=== PATIENT | female | born 1935 | race Caucasian/White ===

== ENCOUNTER 2021-10-08 09:20 | Inpatient (IN) | payer MEDICARE, MEDICAID ==
[~2021-10-08] VITALS: Ht 162.6 cm; Wt 78.7 kg
[2021-10-08] MEDS ORDERED: acetaminophen 650mg rectal suppository RC STA (09:28)
[2021-10-08] MEDS ORDERED: levoFLOXACIN-Levaquin 750MG/D5 150 ML IV ONE (09:30)
[2021-10-08] MEDS ORDERED: normal saline 1000ML IV soln IV ONE (09:30)
--- NOTE | 2021-10-08 09:40 | NUR ---
PAGED PICC LINE NURSE FOR IV ACCESS , PT NEED ULTRASOUND GUIDED ,NO IV ON RGT ARM DUE TO SKIN GRAFT .
[2021-10-08] MEDS ORDERED: DEXTROSE IV ONE (09:42)
[2021-10-08] MEDS ORDERED: [UNRECOGNIZED DRUG - OTHER] IV ONE (09:42)
[2021-10-08] MEDS ORDERED: LEVOFLOXACIN IV ONE (09:42)
--- NOTE | 2021-10-08 09:45 | NUR ---
GOT IV ACCESS ON PT NO NEED FOR PICC LINE NURSE.
[2021-10-08 10:12] LABS: BASOPHILS # (AUTO) 0.1 X10'3 (0-0.2); BASOPHILS % (AUTO) 0.9 % (0-1); EOSINOPHILS % (AUTO) 0.1 % (0-6); HEMATOCRIT 29.5 % (35.0-45.0); HEMOGLOBIN 9.6 g/dl (12.0-16.0); LYMPHOCYTES # (AUTO) 0.8 X10'3 (1.1-4.8); LYMPHOCYTES % (AUTO) 8.5 % (21-51); MEAN CORPUSCULAR HEMOGLOBIN 27.5 PG (27.0-31.0); MEAN CORPUSCULAR HGB CONC 32.5 g/dL (33.0-36.5); MEAN CORPUSCULAR VOLUME 84.8 FL (78-98); MEAN PLATELET VOLUME 7.7 FL (7.4-10.4); MONOCYTES # (AUTO) 0.5 X10'3 (0-0.9); MONOCYTES % (AUTO) 5.7 % (2-12); NEUTROPHILS % (AUTO) 84.8 % (42-75); PLATELET COUNT 477 X10'3 (140-440); RED BLOOD COUNT 3.47 X10'6 (4.20-5.60); WHITE BLOOD COUNT 9.4 X10'3 (4.5-11.0)
[2021-10-08 10:27] LABS: ALANINE AMINOTRANSFERASE 39 U/L (12-78); ALBUMIN 2.9 G/DL (3.4-5.0); ALBUMIN/GLOBULIN RATIO 0.8 (1.1-1.5); ALKALINE PHOSPHATASE 107 IU/L (46-116); ANION GAP 6 (8-16); ASPARTATE AMINO TRANSFERASE 28 U/L (10-37); BILIRUBIN,TOTAL 0.5 MG/DL (0.1-1.0); BLOOD UREA NITROGEN 17 MG/DL (7-18); BUN/CREATININE RATIO 15.7 (6.6-38.0); CALCIUM 8.9 MG/DL (8.5-10.1); CHLORIDE 96 MMOL/L (99-107); CREATININE 1.08 MG/DL (0.40-0.90); GLUCOSE 235 MG/DL (70-104); POTASSIUM 5.4 MMOL/L (3.5-5.1); SODIUM 132 MMOL/L (135-145); TOTAL CARBON DIOXIDE 29.8 MMOL/L (24-32); TOTAL PROTEIN 6.7 G/DL (6.4-8.2); eGFR 48 ML/MIN
[2021-10-08] MEDS ORDERED: morphine 4 MG/ML inj SYRINge IV PRN (10:40)
[2021-10-08] MEDS ORDERED: ondansetron/PF 4mg/2ml inj IV ONE (10:40)
[2021-10-08 10:41] LABS: ANISOCYTOSIS 1+; LARGE PLATELETS FEW; PLATELET ESTIMATE INCREASED; TOTAL CELLS COUNTED 100
[2021-10-08] MEDS ORDERED: iohexol 350MG/ML 100ml bottle IV ONE (10:50)
[2021-10-08] MEDS ORDERED: mag hydrox/Alum hydrox/simeth 30ml oral suspension CORPAK PRN (12:15)
[2021-10-08] MEDS ORDERED: magnesium Cl slow-release 64mg tablet PO PRN (12:15)
[2021-10-08] MEDS ORDERED: morphine 2 MG/ML inj. syringe IV PRN (12:15)
[2021-10-08] MEDS ORDERED: magnesium hydroxide 30ml (MOM) UD suspension CORPAK PRN (12:15)
[2021-10-08] MEDS ORDERED: magnesium 2GM in 50ml NS 50 ML IV PRN (12:15)
[2021-10-08] MEDS ORDERED: ondansetron/PF 4mg/2ml inj IV PRN (12:15)
[2021-10-08] MEDS ORDERED: magnesium 4gm in 100ml NS 100 ML IV PRN (12:15)
[2021-10-08] MEDS ORDERED: potassium CL 10mEq/100ml bag 100 ML IV PRN (12:15)
[2021-10-08] MEDS ORDERED: acetaminophen 325mg tablet CORPAK PRN (12:15)
[2021-10-08] MEDS ORDERED: bisacodyl 10mg suppository rectal RC PRN (12:15)
[2021-10-08] MEDS ORDERED: potassium Cl 20 mEq SR tablet PO PRN ×2 (12:15)
[2021-10-08] MEDS ORDERED: ASPI-1144 PO (12:55)
[2021-10-08] MEDS ORDERED: INSU100V13 PO (12:55)
[2021-10-08] MEDS ORDERED: ACET-75 PO (12:55)
[2021-10-08] MEDS ORDERED: ESTR0.5T28 PO (12:55)
[2021-10-08] MEDS ORDERED: LANTUS SQ (12:55)
[2021-10-08] MEDS ORDERED: LOVA40TA2 PO (12:55)
[2021-10-08] MEDS ORDERED: CETI5TAB27 PO (12:55)
[2021-10-08] MEDS ORDERED: PROP10DR5 OP (12:55)
[2021-10-08] MEDS ORDERED: VALA500T41 PO (12:55)
[2021-10-08] MEDS ORDERED: AZEL6DRO5 EACHEYE (12:55)
[2021-10-08] MEDS ORDERED: LEVO125T PO (12:55)
[2021-10-08] MEDS ORDERED: ALPR0.255 PO (12:55)
[2021-10-08] MEDS ORDERED: METH-797 PO (12:55)
[2021-10-08] MEDS ORDERED: ONDA-103 PO (12:55)
[2021-10-08] MEDS ORDERED: AMLO5TAB16 PO (12:55)
[2021-10-08] MEDS ORDERED: DULO30CA52 PO (12:55)
[2021-10-08] MEDS ORDERED: OXYCODONE PO (13:00)
[2021-10-08 13:01] LABS: CLARITY,URINE SLIGHTLY CLOUDY (Clear); COLOR,URINE YELLOW (Yellow); GLUCOSE, URINE NEGATIVE (Neg); KETONES,URINE NEGATIVE (Neg); LEUKOCYTE ESTERASE ,URINE NEGATIVE (Neg); NITRITES, URINE NEGATIVE (Neg); OCCULT BLOOD,URINE NEGATIVE (Neg); PROTEIN,URINE TRACE mg/dl (Neg); UROBILINOGEN,URINE 0.2 E.U/dL (0.2-1.0)
[2021-10-08 13:05] LABS: UA COLLECTION TYPE NON-SPECIFIED
[2021-10-08 13:06] LABS: BACTERIA,URINE NONE SEEN /HPF (Neg); MUCUS STRANDS NONE SEEN /LPF (Neg); RBC,URINE NONE SEEN /HPF (0-2); SQUAMOUS EPITHELIAL CELL,UR FEW /LPF (FEW); WBC,URINE NONE SEEN /HPF (0-4)
[2021-10-08 13:36] LABS: MAGNESIUM 1.7 MG/DL (1.5-2.4); POTASSIUM 4.9 MMOL/L (3.5-5.1)
[2021-10-08] MEDS: normal saline 1000ml 1,000 ML IV SCH (13:39)
[2021-10-08] MEDS: morphine 2 MG/ML inj. syringe IV PRN ×2 (13:39→20:17)
--- NOTE | 2021-10-08 17:58 | NUR ---
RECEIVED REPORT, ASSUMED CARE. PT ARRIVED WITH ng TUBE IN SECURED WITH A BRIDAL, DRIED BLOOD PRIMARILY AROUND L NARE. MOUTH HAS SCABS LOOKING AREA ON L SIDE WELL VERRY DRY THICKENED TONGUE, BANDAGE TO R ARM AND R THIGH, FRONT OF NECK. F/C IN PLACE, VS STABLE, IV FLUIDS CONNECTED AND RUNNING ORDERED. TELE SET UP. NO ADMIT PROCESS COMPLETED, WILL REPORT TO NOC NURSE NEED TO COMPLETE ADMISSION.
[2021-10-08 18:01] VITALS: BP 134/78
--- NOTE | 2021-10-08 18:34 | NUR ---
Problems reprioritized. Patient report given, questions answered & plan of care reviewed with Vicki THACKER.
--- NOTE | 2021-10-08 18:40 | NUR ---
Patient in room ORTHO 4008. I have received report from Martinez THACKER and had the opportunity to ask questions and assume patient care.
[2021-10-08] MEDS: K and/or MAG REPLACEMENT MC SCH (19:06)
[2021-10-08] MEDS: heparin, porcine 5000 units/ml vial SQ SCH (20:17)
[2021-10-08] MEDS ORDERED: temazepam 15mg capsule CORPAK PRN (21:00)
[2021-10-08 22:00] VITALS: BP 143/30
--- NOTE | 2021-10-08 23:10 | NUR ---
DRESSING CHANGES- Spoke on the phone with pts grandson Margarito, he has been caring for pt sense discharge from [facility]. Pt had mouth surgery recently with skin grafts. Per Margarito the dressing on her neck from her trach "is not supposed to be changed until the tape starts to peel up" the dressing on her R forearm from a skin graft "is supposed to changed once a day" the skin graft on her R leg "is supposed to keep in place unless soiled." Margarito also stated that they have a scheduled post op appointment on 10/14 where they would get further instructions on her care.
[2021-10-08 23:27] LABS: HEMOGLOBIN A1C 6.4 % (4.5-6.2)
[2021-10-09] MEDS: normal saline 1000ml 1,000 ML IV SCH ×2 (00:45→18:39)
[2021-10-09] MEDS: morphine 2 MG/ML inj. syringe IV PRN ×4 (01:14→19:48)
--- NOTE | 2021-10-09 01:49 | NUR ---
PAGER ID: [phone] MESSAGE: Pt in [phone] Christel Adams. Admitted yesterday for PN and Resp failure. NPO with core pack placement post oral surgery at [facility]. History of DM. Pt blood sugar was 171 at 2100. and 173 now. No diabetic protocol ordered. Addendum: 10/09/21 at 0152 by Vicki Carias RN gave orders for diabetic protocol
[2021-10-09] MEDS ORDERED: dextrose 50%-water 50ml dispensing syringe IV PRN ×2 (01:55)
[2021-10-09] MEDS ORDERED: MESSAGE TO PHARMACY PO ONE (01:55)
[2021-10-09] MEDS ORDERED: glucagon, human recombinant 1mg kit SUBCUT PRN (01:55)
[2021-10-09] MEDS ORDERED: insulin Lispro (HumaLOG) vial - multi-dose SQ SCH (01:55)
[2021-10-09] MEDS ORDERED: DEXTROSE 15 GM of carb/4 tabs (each vial/BOTTLE has 4 tablets) PO PRN ×2 (01:55)
[2021-10-09 02:00] VITALS: BP 142/37
[2021-10-09 06:00] VITALS: BP 142/38
--- NOTE | 2021-10-09 06:45 | NUR ---
Problems reprioritized. Patient report given, questions answered & plan of care reviewed with Alessia THACKER.
[2021-10-09] MEDS: K and/or MAG REPLACEMENT MC SCH (07:21)
[2021-10-09] MEDS: heparin, porcine 5000 units/ml vial SQ SCH ×2 (07:31→21:59)
[2021-10-09] MEDS: levoFLOXACIN-Levaquin 500mg/D5 100 ML IV SCH (07:31)
[2021-10-09 08:01] LABS: BASOPHILS % (AUTO) 0.4 % (0-1); EOSINOPHILS % (AUTO) 0.3 % (0-6); HEMATOCRIT 27.3 % (35.0-45.0); LYMPHOCYTES % (AUTO) 15.9 % (21-51); MEAN CORPUSCULAR HEMOGLOBIN 28.5 PG (27.0-31.0); MEAN CORPUSCULAR HGB CONC 33.1 g/dL (33.0-36.5); MEAN CORPUSCULAR VOLUME 86.2 FL (78-98); MEAN PLATELET VOLUME 8.1 FL (7.4-10.4); MONOCYTES # (AUTO) 0.6 X10'3 (0-0.9); MONOCYTES % (AUTO) 9.6 % (2-12); NEUTROPHILS # (AUTO) 4.4 X10'3 (1.8-7.7); NEUTROPHILS % (AUTO) 73.8 % (42-75); PLATELET COUNT 373 X10'3 (140-440); RED BLOOD COUNT 3.16 X10'6 (4.20-5.60); RED CELL DISTRIBUTION WIDTH 16.7 % (11.5-14.5)
[2021-10-09 08:53] LABS: ALANINE AMINOTRANSFERASE 34 U/L (12-78); ALBUMIN 2.5 G/DL (3.4-5.0); ALBUMIN/GLOBULIN RATIO 0.7 (1.1-1.5); ALKALINE PHOSPHATASE 77 IU/L (46-116); ANION GAP 9 (8-16); ASPARTATE AMINO TRANSFERASE 30 U/L (10-37); BILIRUBIN,TOTAL 0.4 MG/DL (0.1-1.0); BLOOD UREA NITROGEN 11 MG/DL (7-18); BUN/CREATININE RATIO 12.4 (6.6-38.0); CALCIUM 8.6 MG/DL (8.5-10.1); CHLORIDE 100 MMOL/L (99-107); CREATININE 0.89 MG/DL (0.40-0.90); GLUCOSE 187 MG/DL (70-104); MAGNESIUM 2.1 MG/DL (1.5-2.4); POTASSIUM 4.7 MMOL/L (3.5-5.1); SODIUM 135 MMOL/L (135-145); TOTAL CARBON DIOXIDE 25.8 MMOL/L (24-32); eGFR 60 ML/MIN
--- NOTE | 2021-10-09 09:10 | NUR ---
DM/TF consults: Pt with T2DM, well controlled with A1c 6.4%, DM education not warranted at this time. Per H&P pt with mouth cancer, s/p recent excision of the soft palate cancer with skin grafting from right forearm to mouth as well as skin grafting from right thigh to right forearm. Pt with a Corpak in place per EMR, see TF recommendations below. IBW was used to calculate estimated nutrient needs as current documented wt isn't scaled. Will adjust recommendations as appropriately once a scaled weight is obtained. Pt s/p BSS with ST recs NPO d/t requiring multiple swallow attempts and coughing after swallowing. No documented BM, PRN bowel care available. Will continue to follow closely and make recommendations as appropriate. Recommendations: 1) Continue NPO status per ST recs; diet advancement to regular if able to tolerate PO intake per ST 2) Continuous TF via Corpak using Fridayity 1.2 with 56 mL/hr goal rate. To provide 1344 mL total volume/day, 1613 kcal, 75 g protein, and 1085 mL water 3) Adjust TF recs as appropriate pending scaled weight 4) No water flushes at this time in view of hyponatremia; monitor serum Na 5) Consider PEG for retirement nutrition if unable to advance PO diet 6) Prealbumin q Tuesday/ 7) Daily scaled weights 8) Routine bowel care Addendum: 10/09/21 at [address] Amended: Links added.
[2021-10-09 10:00] VITALS: BP 132/39
[2021-10-09] MEDS ORDERED: DEXTROSE 15 GM of carb/4 tabs (each vial/BOTTLE has 4 tablets) CORPAK PRN ×2 (11:45→11:46)
[2021-10-09] MEDS ORDERED: potassium Cl 20 mEq SR tablet CORPAK PRN ×2 (11:48)
[2021-10-09] MEDS ORDERED: acetaminophen 325mg/10.15ml oral unit dose solution CORPAK PRN (11:50)
[2021-10-09 14:00] VITALS: BP 133/40
[2021-10-09] MEDS: insulin regular, human U-100 3ml vial - multi-dose SQ SCH ×2 (15:10→21:58)
[2021-10-09] MEDS ORDERED: PROPYLENE GLYCOL OP PRN (17:55)
[2021-10-09] MEDS ORDERED: PEG OP PRN (17:55)
[2021-10-09 18:00] VITALS: BP 154/43
--- NOTE | 2021-10-09 19:05 | NUR ---
Patient in room ORTHO 4008. I have received report from MYNOR THACKER and had the opportunity to ask questions and assume patient care.
[2021-10-09] MEDS: TYPE IN GENERIC & BRAND NAME OF PATIENT MED STRENGTH & FORM EACHEYE PRN (19:54)
[2021-10-09] MEDS: cetirizine 10mg tablet CORPAK SCH (20:00)
[2021-10-09] MEDS: cyclobenzaprine 10mg tablet CORPAK SCH (21:59)
[2021-10-09 22:00] VITALS: BP 134/38
[2021-10-09] MEDS: insulin glargine (Lantus) pen - multi-dose SQ SCH (22:07)
--- NOTE | 2021-10-10 00:45 | NUR ---
WASN'T ABLE TO ADMINISTER HS MEDS VIA CORPAK D/T HER SETUP IS NOT COMPATABLE WITH ANY OF OUR MATERIALS. WILL CONTACT GRANDSON IN THE MORNING AND ASK HIM TO BRING IN WHAT HE USES TO ADMINISTER HER MEDICATIONS TO HER.
[2021-10-10] MEDS: morphine 2 MG/ML inj. syringe IV PRN ×4 (01:10→20:43)
[2021-10-10 02:00] VITALS: BP 105/34
[2021-10-10] MEDS: insulin regular, human U-100 3ml vial - multi-dose SQ SCH ×4 (05:09→21:48)
[2021-10-10 06:00] VITALS: BP 129/32
--- NOTE | 2021-10-10 06:19 | NUR ---
Problems reprioritized. Patient report given, questions answered & plan of care reviewed with MYNOR THACKER.
[2021-10-10] MEDS: normal saline 1000ml 1,000 ML IV SCH ×2 (06:30→17:59)
[2021-10-10 06:58] LABS: BASOPHILS % (AUTO) 0.2 % (0-1); EOSINOPHILS % (AUTO) 0.4 % (0-6); HEMATOCRIT 24.4 % (35.0-45.0); HEMOGLOBIN 8.2 g/dl (12.0-16.0); LYMPHOCYTES # (AUTO) 0.9 X10'3 (1.1-4.8); LYMPHOCYTES % (AUTO) 19.3 % (21-51); MEAN CORPUSCULAR HGB CONC 33.5 g/dL (33.0-36.5); MEAN CORPUSCULAR VOLUME 86.5 FL (78-98); MEAN PLATELET VOLUME 8.1 FL (7.4-10.4); MONOCYTES # (AUTO) 0.6 X10'3 (0-0.9); MONOCYTES % (AUTO) 11.7 % (2-12); NEUTROPHILS # (AUTO) 3.3 X10'3 (1.8-7.7); NEUTROPHILS % (AUTO) 68.4 % (42-75); PLATELET COUNT 354 X10'3 (140-440); RED BLOOD COUNT 2.82 X10'6 (4.20-5.60); RED CELL DISTRIBUTION WIDTH 16.6 % (11.5-14.5); WHITE BLOOD COUNT 4.8 X10'3 (4.5-11.0)
[2021-10-10 07:29] LABS: ALANINE AMINOTRANSFERASE 38 U/L (12-78); ALBUMIN 2.2 G/DL (3.4-5.0); ALBUMIN/GLOBULIN RATIO 0.6 (1.1-1.5); ALKALINE PHOSPHATASE 95 IU/L (46-116); ANION GAP 7 (8-16); ASPARTATE AMINO TRANSFERASE 39 U/L (10-37); BILIRUBIN,TOTAL 0.3 MG/DL (0.1-1.0); BLOOD UREA NITROGEN 14 MG/DL (7-18); BUN/CREATININE RATIO 16.3 (6.6-38.0); CALCIUM 8.1 MG/DL (8.5-10.1); CHLORIDE 102 MMOL/L (99-107); CREATININE 0.86 MG/DL (0.40-0.90); GLUCOSE 289 MG/DL (70-104); MAGNESIUM 1.8 MG/DL (1.5-2.4); POTASSIUM 4.5 MMOL/L (3.5-5.1); SODIUM 135 MMOL/L (135-145); TOTAL CARBON DIOXIDE 26.3 MMOL/L (24-32); TOTAL PROTEIN 5.6 G/DL (6.4-8.2); eGFR 63 ML/MIN
[2021-10-10] MEDS: levoTHYROXINE 125mcg tablet CORPAK SCH (08:00)
[2021-10-10] MEDS: amLODIPine 5mg tablet CORPAK SCH (08:00)
[2021-10-10] MEDS: K and/or MAG REPLACEMENT MC SCH ×3 (08:00→20:00)
[2021-10-10] MEDS: cetirizine 10mg tablet CORPAK SCH ×2 (08:00→21:25)
[2021-10-10] MEDS: ALPRAZolam 0.25mg tablet CORPAK SCH ×3 (08:00→15:22)
[2021-10-10] MEDS: atorvastatin 10mg tablet CORPAK SCH (08:00)
[2021-10-10] MEDS: levoFLOXACIN-Levaquin 500mg/D5 100 ML IV SCH (09:27)
[2021-10-10] MEDS: heparin, porcine 5000 units/ml vial SQ SCH ×2 (09:28→21:26)
--- NOTE | 2021-10-10 09:43 | NUR ---
ALBARO Pimentel who said he will bring in the syringe that is compatible with pt's corpak. He is at work and cant get here until around 2pm today.
--- NOTE | 2021-10-10 09:51 | NUR ---
PAGER ID: [phone] MESSAGE: Celina [phone] re: Christel Adams in [phone]. Pt's corpak is not compatible with any of our syringes so we are unable to admin meds through corpak. Olena will bring syring from home at 1400 today.
[2021-10-10 10:00] VITALS: BP 140/58
[2021-10-10] MEDS: cyclobenzaprine 10mg tablet CORPAK SCH ×4 (15:22→21:25)
[2021-10-10] MEDS: aspirin 81mg tab.chew CORPAK SCH (15:22)
[2021-10-10] MEDS: TYPE IN GENERIC & BRAND NAME OF PATIENT MED STRENGTH & FORM EACHEYE PRN (15:26)
[2021-10-10] MEDS: duloxetine 30mg CAPSULE.DR PO SCH (15:54)
[2021-10-10 18:00] VITALS: BP 108/32
--- NOTE | 2021-10-10 18:41 | NUR ---
Problems reprioritized. Patient report given, questions answered & plan of care reviewed with Helen THACKER.
[2021-10-10] MEDS: insulin glargine (Lantus) pen - multi-dose SQ SCH (21:40)
[2021-10-10 22:00] VITALS: BP 142/41
[2021-10-11] MEDS: ALPRAZolam 0.25mg tablet CORPAK SCH ×3 (01:52→16:43)
[2021-10-11] MEDS: normal saline 1000ml 1,000 ML IV SCH ×2 (02:45→15:15)
[2021-10-11] MEDS: morphine 2 MG/ML inj. syringe IV PRN ×4 (03:36→23:39)
--- NOTE | 2021-10-11 04:42 | NUR ---
PTS ACU CHECK IS 84, DOWN FROM [address] PAUL AND WAS TOLD TO HOLD INSULIN. NO NUTRITIONAL COVERAGE GIVEN AND WILL EVALUATE WHETHER PATIENT NEEDS TO DECREASE HER LEVEL ON THE PROTOCOL WITH NEXT CHECK.
[2021-10-11 06:00] VITALS: BP 122/45
--- NOTE | 2021-10-11 06:30 | NUR ---
Patient in room ORTHO 4008. I have received report from KEDAR Cervantes and had the opportunity to ask questions and assume patient care.
[2021-10-11 06:57] LABS: ALANINE AMINOTRANSFERASE 36 U/L (12-78); ALBUMIN 2.3 G/DL (3.4-5.0); ALBUMIN/GLOBULIN RATIO 0.7 (1.1-1.5); ALKALINE PHOSPHATASE 86 IU/L (46-116); ANION GAP 6 (8-16); ASPARTATE AMINO TRANSFERASE 42 U/L (10-37); BILIRUBIN,TOTAL 0.2 MG/DL (0.1-1.0); BLOOD UREA NITROGEN 12 MG/DL (7-18); BUN/CREATININE RATIO 16.4 (6.6-38.0); CALCIUM 8.5 MG/DL (8.5-10.1); CHLORIDE 105 MMOL/L (99-107); CREATININE 0.73 MG/DL (0.40-0.90); FERRITIN 203 NG/ML (8-252); GLUCOSE 101 MG/DL (70-104); POTASSIUM 4.2 MMOL/L (3.5-5.1); SODIUM 138 MMOL/L (135-145); TOTAL CARBON DIOXIDE 27.2 MMOL/L (24-32); TOTAL PROTEIN 5.7 G/DL (6.4-8.2); eGFR 76 ML/MIN
[2021-10-11 07:12] LABS: BASOPHILS % (AUTO) 0.5 % (0-1); EOSINOPHILS % (AUTO) 0.6 % (0-6); HEMATOCRIT 26.9 % (35.0-45.0); HEMOGLOBIN 8.7 g/dl (12.0-16.0); LYMPHOCYTES # (AUTO) 1.5 X10'3 (1.1-4.8); LYMPHOCYTES % (AUTO) 31.9 % (21-51); MEAN CORPUSCULAR HEMOGLOBIN 27.9 PG (27.0-31.0); MEAN CORPUSCULAR HGB CONC 32.2 g/dL (33.0-36.5); MEAN CORPUSCULAR VOLUME 86.5 FL (78-98); MEAN PLATELET VOLUME 8.2 FL (7.4-10.4); MONOCYTES # (AUTO) 0.6 X10'3 (0-0.9); MONOCYTES % (AUTO) 13.5 % (2-12); NEUTROPHILS # (AUTO) 2.5 X10'3 (1.8-7.7); NEUTROPHILS % (AUTO) 53.5 % (42-75); PLATELET COUNT 370 X10'3 (140-440); RED BLOOD COUNT 3.11 X10'6 (4.20-5.60); RED CELL DISTRIBUTION WIDTH 17.3 % (11.5-14.5); WHITE BLOOD COUNT 4.6 X10'3 (4.5-11.0)
[2021-10-11 07:16] LABS: % IRON SATURATION 13 % (11-46); IRON 34 UG/DL (49-151); TOTAL IRON BINDING CAPACITY 265 UG/DL (259-388)
--- NOTE | 2021-10-11 07:26 | NUR ---
Problems reprioritized. Patient report given, questions answered & plan of care reviewed with DARLINE THACKER.
[2021-10-11] MEDS: K and/or MAG REPLACEMENT MC SCH ×2 (08:00→20:00)
[2021-10-11] MEDS: levoFLOXACIN-Levaquin 250mg/D5 50 ML IV SCH (08:50)
[2021-10-11] MEDS: aspirin 81mg tab.chew CORPAK SCH (08:52)
[2021-10-11] MEDS: amLODIPine 5mg tablet CORPAK SCH (08:52)
[2021-10-11] MEDS: levoTHYROXINE 125mcg tablet CORPAK SCH (08:53)
[2021-10-11] MEDS: heparin, porcine 5000 units/ml vial SQ SCH ×2 (08:53→19:56)
[2021-10-11] MEDS: atorvastatin 10mg tablet CORPAK SCH (08:53)
[2021-10-11] MEDS: duloxetine 30mg CAPSULE.DR PO SCH (08:53)
[2021-10-11] MEDS: cyclobenzaprine 10mg tablet CORPAK SCH ×3 (08:53→20:08)
[2021-10-11] MEDS: cetirizine 10mg tablet CORPAK SCH ×2 (08:53→19:56)
[2021-10-11 10:00] VITALS: BP 129/58
--- NOTE | 2021-10-11 10:40 | NUR ---
0900 corpack pump was not running. Meds were crushed except Cymbalta which was processed as pharmacy advised. Tube appeared to flush but was found backed up Jevity tubing into the chamber. Removed feeing tubing but corpack would not flush. Multiple attempt to de-clog failed. Notified Dr Lyle who will contact IR for assist. Corpack is not to be used until cleared or replaced.
--- NOTE | 2021-10-11 10:56 | NUR ---
tube feeding not running d/t cloggmarquez connolly Addendum: 10/11/21 at 1056 by Cindy Bowers RN Amended: Links added.
--- NOTE | 2021-10-11 13:56 | NUR ---
MANAGER STONE came to aide in fixing clogged Corpack. Was able to release clamp near nose to clear it the re-clamped. Tube feeding resumed and medications flushed easily.
[2021-10-11 14:00] VITALS: BP 110/52
[2021-10-11] MEDS: insulin regular, human U-100 3ml vial - multi-dose SQ SCH ×2 (14:16→20:03)
[2021-10-11 18:00] VITALS: BP 101/41
--- NOTE | 2021-10-11 18:26 | NUR ---
Problems reprioritized. Patient report given, questions answered & plan of care reviewed with KEDAR Cervantes.
--- NOTE | 2021-10-11 18:51 | NUR ---
Patient in room ORTHO 4008. I have received report from DARLINE THACKER and had the opportunity to ask questions and assume patient care.
[2021-10-11] MEDS: insulin glargine (Lantus) pen - multi-dose SQ SCH (20:05)
[2021-10-11 22:00] VITALS: BP 114/39
[2021-10-12] VITALS (17 sets, daily range): BP systolic 110–166; BP diastolic 30–59
[2021-10-12] MEDS ORDERED: albuterol 2.5 MG/3 ML nebule NEB STA (01:21)
[2021-10-12 01:29] LABS: ABG BASE EXCESS -3.3 mmol/L (-2.0-2.0); ABG HCO3 21.6 mmol/L (22.0-26.0); ABG OXYGEN SATURATION 96.3 % (94-97); ABG PCO2 (T) 37.9 mmHg (32.0-45.0); ALLEN'S TEST POSITIVE; FCOHb 0.3 % (0.0-3.9); FLOW 4 L/min; FMetHb 0.2 % (0.0-1.5); FO2Hb 95.8 % (94-97); TOTAL HEMOGLOBIN 10.4 G/dl (12.0-16.0)
[2021-10-12] MEDS ORDERED: ipratropium/albuterol 3ml nebule NEB PRN (01:50)
[2021-10-12 01:59] LABS: BASOPHILS % (AUTO) 0.7 % (0-1); EOSINOPHILS # (AUTO) 0.1 X10'3 (0-0.9); EOSINOPHILS % (AUTO) 0.9 % (0-6); HEMATOCRIT 30.3 % (35.0-45.0); HEMOGLOBIN 9.9 g/dl (12.0-16.0); LYMPHOCYTES # (AUTO) 2.5 X10'3 (1.1-4.8); LYMPHOCYTES % (AUTO) 42.2 % (21-51); MEAN CORPUSCULAR HGB CONC 32.8 g/dL (33.0-36.5); MEAN CORPUSCULAR VOLUME 88.5 FL (78-98); MEAN PLATELET VOLUME 7.8 FL (7.4-10.4); MONOCYTES # (AUTO) 0.7 X10'3 (0-0.9); NEUTROPHILS # (AUTO) 2.7 X10'3 (1.8-7.7); NEUTROPHILS % (AUTO) 45.2 % (42-75); PLATELET COUNT 446 X10'3 (140-440); RED BLOOD COUNT 3.42 X10'6 (4.20-5.60); RED CELL DISTRIBUTION WIDTH 17.5 % (11.5-14.5); WHITE BLOOD COUNT 5.9 X10'3 (4.5-11.0)
[2021-10-12] MEDS: ALPRAZolam 0.25mg tablet CORPAK SCH ×3 (02:02→15:46)
[2021-10-12 02:16] LABS: ALANINE AMINOTRANSFERASE 50 U/L (12-78); ALBUMIN 2.5 G/DL (3.4-5.0); ALBUMIN/GLOBULIN RATIO 0.7 (1.1-1.5); ALKALINE PHOSPHATASE 109 IU/L (46-116); ANION GAP 9 (8-16); ASPARTATE AMINO TRANSFERASE 58 U/L (10-37); BILIRUBIN,TOTAL 0.3 MG/DL (0.1-1.0); BLOOD UREA NITROGEN 12 MG/DL (7-18); BUN/CREATININE RATIO 13.6 (6.6-38.0); CALCIUM 8.3 MG/DL (8.5-10.1); CHLORIDE 103 MMOL/L (99-107); CREATININE 0.88 MG/DL (0.40-0.90); GLUCOSE 193 MG/DL (70-104); POTASSIUM 4.3 MMOL/L (3.5-5.1); PREALBUMIN 22.9 MG/DL (19-36); SODIUM 136 MMOL/L (135-145); TOTAL CARBON DIOXIDE 23.7 MMOL/L (24-32); TOTAL PROTEIN 6.1 G/DL (6.4-8.2); eGFR 61 ML/MIN
[2021-10-12] MEDS: insulin regular, human U-100 3ml vial - multi-dose SQ SCH (02:42)
--- NOTE | 2021-10-12 02:51 | NUR ---
2400. CONTINUOUS TUBE FDG STOPPED ORDERED FOR PATIENT'S SURGERY IN THE AM. PATIENT REPOSITIONED ONTO L SIDE AND TOLD I WOULD BRING IN HER XANAX AFTER 0100 IT IS TOO EARLY AT THIS TIME, (EARLIER DOSE GIVEN LATE). CALL LIGHT IN REACH AND RESTING 0110 ANSWERED CALL LIGHT, PATIENT IN DISTRESS, GOT HERSELF UP TO EDGE OF BED, RESP STRIDER, PATIENT WORKING TO GET A BREATH, 02 SATS AT 84%, INCREASED OXYGEN TO 4L, ATTEMPTED TO SUCTION IN BACK OF PATIENT'S THROAT BUT NOT ABLE TO GET ANYTHING, PATIENT CONTINUING TO COUGH AND HAVING STRIDER. RAPID CALLED FOR ASSISTANCE, PATIENT'S SATS UP TO 90%, SLOWLY ABLE TO GET HER BREATH. TATIANA LYONS ARRIVED AND ASSESSED PATIENT, ORDERED CXR, LABS AND RT TRTMTS. PATIENT STATED SHE FELT LIKE SHE HAD A BIG BALL OF MUCOUS THAT SHE COULDN'T GET TO COME UP OR GET DOWN AND IT WAS STOPPING HER ABILITY TO GET AIR. V/S TAKEN, AND 02 SATS UP TO 95%. PATIENT ABLE TO SPEAK NOW AND RESPIRATIONS WITHOUT STRIDER AND STATED SHE CAN BREATHE NOW. PATIENT AMBULATED TO RECLINER IN ROOM, PILLOW UNDER LEGS TO ELEVATE HEELS, LIPS MOISTURIZED AND KY TO NARES TO ATTEMPT LOOSENING DRIED SECRETIONS TO AID WITH BREATHING. 0300 AT THIS TIME, PATIENT RESTING COMFORTABLY IN RECLINER WITH EYES CLOSED, NO RESP EFFORT NOTED. CALL LIGHT IN REACH.
--- NOTE | 2021-10-12 06:57 | NUR ---
Patient in room ORTHO 4008. I have received report from Helen THACKER and had the opportunity to ask questions and assume patient care.
--- NOTE | 2021-10-12 07:01 | NUR ---
Problems reprioritized. Patient report given, questions answered & plan of care reviewed with COLTEN THACKER.
--- NOTE | 2021-10-12 07:47 | NUR ---
PAGER ID: [phone] MESSAGE: Arely Bronson [phone] Re: Bryan, [phone] Please call re BP medication
--- NOTE | 2021-10-12 07:55 | NUR ---
Reassessment: Pt has continued on TF w/ goal of Jevity 1.2 at 56ml/hr. Noted Corpak had been clogged for some time 10/11 though it was resolved. TF has been held since midnight as pt is planned for PEG today per MD note. Pt also documented to have rapid called last night. Recommend resuming TF to goal once cleared by surgeon s/p PEG. LBM 10/11. Will continue to monitor Recommendations: 1) Continue NPO status per ST recs; diet advancement to regular if able to tolerate PO intake per ST 2) Continuous TF via PEG using Jevity 1.2 with 56 mL/hr goal rate. To provide 1344 mL total volume/day, 1613 kcal, 75 g protein, and 1085 mL water 3) Adjust TF recs as appropriate pending scaled weight 4) No water flushes at this time in view of previous hyponatremia; monitor serum Na 5) Prealbumin q Tuesday/ 6) Daily scaled weights 7) Routine bowel care Addendum: 10/12/21 at [address] Amended: Links added.
[2021-10-12] MEDS: amLODIPine 5mg tablet CORPAK SCH (08:00)
[2021-10-12] MEDS: K and/or MAG REPLACEMENT MC SCH ×2 (08:00→20:00)
[2021-10-12] MEDS: heparin, porcine 5000 units/ml vial SQ SCH ×2 (08:00→20:36)
[2021-10-12] MEDS: cyclobenzaprine 10mg tablet CORPAK SCH ×3 (08:00→20:36)
[2021-10-12] MEDS: aspirin 81mg tab.chew CORPAK SCH (08:00)
[2021-10-12] MEDS: cetirizine 10mg tablet CORPAK SCH ×2 (08:39→20:36)
[2021-10-12] MEDS: levoTHYROXINE 125mcg tablet CORPAK SCH (08:39)
[2021-10-12] MEDS: atorvastatin 10mg tablet CORPAK SCH (08:39)
[2021-10-12] MEDS: morphine 2 MG/ML inj. syringe IV PRN ×2 (08:41→20:56)
[2021-10-12] MEDS: levoFLOXACIN-Levaquin 250mg/D5 50 ML IV SCH (08:42)
[2021-10-12] MEDS: duloxetine 30mg CAPSULE.DR PO SCH (08:48)
[2021-10-12] MEDS: normal saline 1000ml 1,000 ML IV SCH ×2 (08:55→16:15)
[2021-10-12] MEDS ORDERED: diphenhydrAMINE 50 mg/ml inj ONE (15:57)
[2021-10-12] MEDS ORDERED: MIDAZolam 1 MG/ML 5ML VIAL ONE (15:57)
[2021-10-12] MEDS ORDERED: fentaNYL/PF 50MCG/1 ML 2ML syringe ONE (15:57)
--- NOTE | 2021-10-12 18:59 | NUR ---
Spoke to Grace in the GI lab who is trying to contact Dr Adam to see when we can use patients PEG tube. No response at this time. Addendum: 10/12/21 at 1901 by Arely Lee RN Per Grace she asked Dr Adam to call Dr Honeycutt and advise on further feeding plan
--- NOTE | 2021-10-12 19:02 | NUR ---
Problems reprioritized. Patient report given, questions answered & plan of care reviewed with Maria Antonia THACKER.
[2021-10-12] MEDS: mineral oil/pet hy-phy 85gm ointment TP SCH (20:00)
[2021-10-12] MEDS: insulin glargine (Lantus) pen - multi-dose SQ SCH (21:04)
[2021-10-13] VITALS (7 sets, daily range): BP systolic 109–153; BP diastolic 36–66
[2021-10-13] MEDS: ALPRAZolam 0.25mg tablet CORPAK SCH ×3 (01:40→15:23)
[2021-10-13] MEDS: morphine 2 MG/ML inj. syringe IV PRN ×4 (01:49→21:45)
[2021-10-13] MEDS: normal saline 1000ml 1,000 ML IV SCH ×2 (04:15→17:49)
[2021-10-13 05:25] LABS: BASOPHILS % (AUTO) 0.3 % (0-1); EOSINOPHILS % (AUTO) 0.5 % (0-6); HEMATOCRIT 28.5 % (35.0-45.0); HEMOGLOBIN 9.4 g/dl (12.0-16.0); LYMPHOCYTES # (AUTO) 1.9 X10'3 (1.1-4.8); LYMPHOCYTES % (AUTO) 27.4 % (21-51); MEAN CORPUSCULAR HEMOGLOBIN 28.7 PG (27.0-31.0); MEAN CORPUSCULAR HGB CONC 32.9 g/dL (33.0-36.5); MEAN CORPUSCULAR VOLUME 87.4 FL (78-98); MEAN PLATELET VOLUME 7.8 FL (7.4-10.4); MONOCYTES # (AUTO) 0.7 X10'3 (0-0.9); MONOCYTES % (AUTO) 10.6 % (2-12); NEUTROPHILS # (AUTO) 4.3 X10'3 (1.8-7.7); NEUTROPHILS % (AUTO) 61.2 % (42-75); PLATELET COUNT 406 X10'3 (140-440); RED BLOOD COUNT 3.26 X10'6 (4.20-5.60); RED CELL DISTRIBUTION WIDTH 17.4 % (11.5-14.5); WHITE BLOOD COUNT 7.1 X10'3 (4.5-11.0)
[2021-10-13 05:41] LABS: ALANINE AMINOTRANSFERASE 32 U/L (12-78); ALBUMIN 2.3 G/DL (3.4-5.0); ALBUMIN/GLOBULIN RATIO 0.6 (1.1-1.5); ALKALINE PHOSPHATASE 76 IU/L (46-116); ANION GAP 12 (8-16); ASPARTATE AMINO TRANSFERASE 32 U/L (10-37); BILIRUBIN,TOTAL 0.4 MG/DL (0.1-1.0); BLOOD UREA NITROGEN 9 MG/DL (7-18); BUN/CREATININE RATIO 12.3 (6.6-38.0); CALCIUM 8.3 MG/DL (8.5-10.1); CHLORIDE 101 MMOL/L (99-107); CREATININE 0.73 MG/DL (0.40-0.90); GLUCOSE 138 MG/DL (70-104); POTASSIUM 4.2 MMOL/L (3.5-5.1); SODIUM 136 MMOL/L (135-145); TOTAL CARBON DIOXIDE 23.1 MMOL/L (24-32); TOTAL PROTEIN 5.9 G/DL (6.4-8.2); eGFR 76 ML/MIN
[2021-10-13] MEDS: heparin, porcine 5000 units/ml vial SQ SCH ×2 (08:00→20:04)
[2021-10-13] MEDS: levoFLOXACIN-Levaquin 250mg/D5 50 ML IV SCH (08:00)
[2021-10-13] MEDS: K and/or MAG REPLACEMENT MC SCH ×2 (08:00→20:00)
[2021-10-13] MEDS: atorvastatin 10mg tablet CORPAK SCH (08:00)
[2021-10-13] MEDS: cyclobenzaprine 10mg tablet CORPAK SCH ×2 (08:00→12:34)
[2021-10-13] MEDS: duloxetine 30mg CAPSULE.DR PO SCH (08:00)
[2021-10-13] MEDS: amLODIPine 5mg tablet CORPAK SCH (08:00)
[2021-10-13] MEDS: levoTHYROXINE 125mcg tablet CORPAK SCH (08:00)
[2021-10-13] MEDS: aspirin 81mg tab.chew CORPAK SCH (08:00)
[2021-10-13] MEDS: cetirizine 10mg tablet CORPAK SCH (08:00)
--- NOTE | 2021-10-13 11:18 | NUR ---
Student documentation: I have reviewed and agree with all interventions, assessments performed and documented by Nga Finney.
[2021-10-13] MEDS: mineral oil/pet hy-phy 85gm ointment TP SCH ×2 (12:44→20:00)
--- NOTE | 2021-10-13 16:00 | NUR ---
[phone]- Christel Adams- Have paged GI and no return calls regarding if ok to use PEG tube. - Irineo [phone]
--- NOTE | 2021-10-13 16:06 | NUR ---
PAGER ID: [phone] MESSAGE: [phone]- Christel Adams- Per Dr. Jair de leon to use PEG tube. Will notify Industrial Retrofit Designer. Thank you- Irineo [phone]
--- NOTE | 2021-10-13 16:34 | NUR ---
Patient tolerated DC of corpak.
[2021-10-13] MEDS: ferrous gluconate 324mg tablet PO SCH (17:30)
[2021-10-13] MEDS ORDERED: ascorbic acid 500mg tablet PO SCH (17:30)
[2021-10-13] MEDS ORDERED: acetaminophen 325mg/10.15ml oral unit dose solution PEG PRN (17:58)
[2021-10-13] MEDS ORDERED: DEXTROSE 15 GM of carb/4 tabs (each vial/BOTTLE has 4 tablets) PEG PRN ×2 (18:02)
[2021-10-13] MEDS ORDERED: temazepam 15mg capsule PEG PRN (18:03)
[2021-10-13] MEDS ORDERED: magnesium hydroxide 30ml (MOM) UD suspension PEG PRN (18:04)
[2021-10-13] MEDS ORDERED: mag hydrox/Alum hydrox/simeth 30ml oral suspension PEG PRN (18:05)
--- NOTE | 2021-10-13 18:44 | NUR ---
NOTIFID DR MESSER FERROUS GLUCONATE CANNOT BE CRUSHED AND PHARMACY ASKED IF OK TO USE FERROS SULFONATE INSTEAD.
[2021-10-13] MEDS: cetirizine 10mg tablet PEG SCH (20:08)
[2021-10-13] MEDS: insulin glargine (Lantus) pen - multi-dose SQ SCH (21:00)
[2021-10-13] MEDS: cyclobenzaprine 10mg tablet PEG SCH (21:43)
--- NOTE | 2021-10-13 21:57 | NUR ---
did not administer lantus due to patient being NPO and having sugars in the "Normal range" additionally.
[2021-10-14] VITALS (7 sets, daily range): BP systolic 98–142; BP diastolic 40–54
[2021-10-14] MEDS: ALPRAZolam 0.25mg tablet PEG SCH ×3 (00:40→17:09)
--- NOTE | 2021-10-14 02:36 | NUR ---
Student documentation: I have reviewed interventions, assessments performed and documented by Nancy ORDAZ [facility].
--- NOTE | 2021-10-14 03:33 | NUR ---
Patient urinated 400 mL clear yellow urine at 0025 on bedside commode. Completed bladder scan on patient after she returned to bed after voiding. 0 mLs of urine showed on bladder scan. Patient verbalized that she felt that her bladder was empty. Patient got up again to use bedside commode at 0325, and urinated 300 mLs of clear yellow urine. Denied any dysuria, and verbalized that she felt that her bladder is completely empty.
[2021-10-14] MEDS: morphine 2 MG/ML inj. syringe IV PRN ×4 (03:42→20:07)
--- NOTE | 2021-10-14 06:29 | NUR ---
Patient in room ORTHO 4008. I have received report from KEDAR Aviles and had the opportunity to ask questions and assume patient care.
--- NOTE | 2021-10-14 06:47 | NUR ---
Student documentation: I have reviewed and agree with all interventions, assessments performed and documented by Mara CAMEJO.
--- NOTE | 2021-10-14 06:50 | NUR ---
Problems reprioritized. Patient report given, questions answered & plan of care reviewed with Irineo THACKER.
[2021-10-14] MEDS: K and/or MAG REPLACEMENT MC SCH ×2 (08:00→20:00)
[2021-10-14] MEDS: mineral oil/pet hy-phy 85gm ointment TP SCH ×2 (08:00→20:00)
[2021-10-14] MEDS: cyclobenzaprine 10mg tablet PEG SCH ×3 (08:11→21:04)
[2021-10-14] MEDS: aspirin 81mg tab.chew PEG SCH (08:11)
[2021-10-14] MEDS: levoFLOXACIN-Levaquin 250mg/D5 50 ML IV SCH (08:11)
[2021-10-14] MEDS: ascorbic acid 500mg tablet PEG SCH ×3 (08:12→17:09)
[2021-10-14] MEDS: duloxetine 30mg CAPSULE.DR PO SCH (08:12)
[2021-10-14] MEDS: levoTHYROXINE 125mcg tablet PEG SCH (08:12)
[2021-10-14] MEDS: atorvastatin 10mg tablet PEG SCH (08:12)
[2021-10-14] MEDS: amLODIPine 5mg tablet PEG SCH (08:12)
[2021-10-14] MEDS: heparin, porcine 5000 units/ml vial SQ SCH ×2 (08:13→20:07)
[2021-10-14] MEDS: cetirizine 10mg tablet PEG SCH ×2 (08:13→20:02)
[2021-10-14] MEDS: normal saline 1000ml 1,000 ML IV SCH ×2 (08:13→20:06)
[2021-10-14] MEDS: ferrous gluconate 324mg tablet PO SCH (08:30)
--- NOTE | 2021-10-14 08:48 | NUR ---
PAGER ID: [phone] MESSAGE: [phone]-Christel Adams- Unable to crush the ferrous gluconate but ferrous sulfate can be liquid form for PEG. ok to change ferrous gluconate to ferrous sulfate?- Irineo [phone]
--- NOTE | 2021-10-14 09:30 | NUR ---
TF consult: Pt received PEG 10/13 and is okay to start TF per MD. Previous TF orders remain active in EMR, no changes to TF recommendations. Given serum Na WNL and previously w/ hyponatremia, no additional water flushes at this time. Pt did state that her stomach was a little painful, though that is expected. LBM 10/12. Will continue to monitor. Recommendations: 1) Continue NPO status per ST recs; diet advancement to regular if able to tolerate PO intake per ST 2) Continuous TF via PEG using Jevity 1.2 with 56 mL/hr goal rate. To provide 1344 mL total volume/day, 1613 kcal, 75 g protein, and 1085 mL water 3) Adjust TF recs as appropriate pending scaled weight 4) No water flushes at this time in view of previous hyponatremia; monitor serum Na 5) Prealbumin q Tuesday/ 6) Daily scaled weights 7) Routine bowel care Addendum: 10/14/21 at [address] Amended: Links added.
--- NOTE | 2021-10-14 10:20 | NUR ---
Tube Feeding resumed. Jevity 1.2 @ goal rate of 56ml/hr. Will continue to monitor.
--- NOTE | 2021-10-14 11:24 | NUR ---
Received call from Nurse Calvin from [facility] Head and Neck Surgery team. Marixa was asked by family to call and touch bases regarding patient's oral care. Per Marixa it was okay'd by patient's Dr at [facility] to use oral swabs and to use caution to the left side of mouth where surgery site is. And ok to use salt water rinses but nothing containing alcohol. Also Marixa RN stated patient's right thigh bolster can be dc'd and gave verbal instructions however will also fax over instructions. Will notify Dr. Honeycutt. Addendum: 10/14/21 at 1128 by Irineo Meyer RN Marixa [facility] head and Neck surgery [phone]
--- NOTE | 2021-10-14 12:15 | NUR ---
Received fax from [facility] Marixa RN with surgical bolster removal instructions. Will notify Dr. Honeycutt and senior stock plan administrator.
--- NOTE | 2021-10-14 12:23 | NUR ---
PAGER ID: [phone] MESSAGE: [phone]-Aj Adams- [facility] KEDAR Calvin called state ok to use oral swab for oral care & ok to use salt h20 rinses,caution to left side of mouth. And to dc surgical bolster to R thigh. Instruction dc & drsng care infax. ok to place orders?- [phone]
[2021-10-14] MEDS: ferrous sulfate 300mg/5ml UD oral liquid PEG SCH ×2 (12:30→17:09)
--- NOTE | 2021-10-14 14:27 | NUR ---
Patient wanting to wait until next pain med morphine due to have dressings changes.
--- NOTE | 2021-10-14 18:26 | NUR ---
Problems reprioritized. Patient report given, questions answered & plan of care reviewed with Donna Aviles.
--- NOTE | 2021-10-14 18:29 | NUR ---
completed by hat blocking operator. Addendum: 10/14/21 at 1830 by Irineo Meyer RN Amended: Links added.
--- NOTE | 2021-10-14 18:30 | NUR ---
Completed by squad sergeant. Addendum: 10/14/21 at 1830 by Irineo Meyer RN Amended: Links added.
[2021-10-14] MEDS: insulin regular, human U-100 3ml vial - multi-dose SQ SCH (21:03)
[2021-10-14] MEDS: insulin glargine (Lantus) pen - multi-dose SQ SCH (21:04)
--- NOTE | 2021-10-14 22:58 | NUR ---
Macario THACKER O/N [id number] - Pt. B Bryan rm [phone] - patient has persistent mouth pain, strict NPO, could we get an order for Chloraseptic spray for her?
[2021-10-15] MEDS: ALPRAZolam 0.25mg tablet PEG SCH ×2 (00:26→07:59)
[2021-10-15] MEDS: morphine 2 MG/ML inj. syringe IV PRN ×3 (01:52→14:29)
[2021-10-15] MEDS: insulin regular, human U-100 3ml vial - multi-dose SQ SCH ×3 (02:08→15:00)
[2021-10-15 06:00] VITALS: BP 119/68
--- NOTE | 2021-10-15 06:22 | NUR ---
Problems reprioritized. Patient report given, questions answered & plan of care reviewed with Irineo THACKER.
--- NOTE | 2021-10-15 06:26 | NUR ---
Patient in room ORTHO 4008. I have received report from KEDAR Aviles and had the opportunity to ask questions and assume patient care.
[2021-10-15] MEDS: aspirin 81mg tab.chew PEG SCH (07:59)
[2021-10-15] MEDS: mineral oil/pet hy-phy 85gm ointment TP SCH (08:00)
[2021-10-15] MEDS: amLODIPine 5mg tablet PEG SCH (08:00)
[2021-10-15] MEDS: K and/or MAG REPLACEMENT MC SCH (08:00)
[2021-10-15] MEDS: cyclobenzaprine 10mg tablet PEG SCH ×2 (08:00→13:20)
[2021-10-15] MEDS: atorvastatin 10mg tablet PEG SCH (08:01)
[2021-10-15] MEDS: cetirizine 10mg tablet PEG SCH (08:01)
[2021-10-15] MEDS: levoTHYROXINE 125mcg tablet PEG SCH (08:01)
[2021-10-15] MEDS: ascorbic acid 500mg tablet PEG SCH ×2 (08:02→13:20)
[2021-10-15] MEDS: duloxetine 30mg CAPSULE.DR PO SCH (08:03)
[2021-10-15] MEDS: ferrous sulfate 300mg/5ml UD oral liquid PEG SCH ×2 (08:03→13:20)
[2021-10-15] MEDS: heparin, porcine 5000 units/ml vial SQ SCH (08:05)
[2021-10-15] MEDS: normal saline 1000ml 1,000 ML IV SCH (08:11)
[2021-10-15] MEDS: levoFLOXACIN-Levaquin 250mg/D5 50 ML IV SCH (08:13)
[2021-10-15] MEDS: TYPE IN GENERIC & BRAND NAME OF PATIENT MED STRENGTH & FORM EACHEYE PRN (09:00)
[2021-10-15 09:24] LABS: BASOPHILS % (AUTO) 0.3 % (0-1); EOSINOPHILS # (AUTO) 0.1 X10'3 (0-0.9); EOSINOPHILS % (AUTO) 0.7 % (0-6); HEMATOCRIT 29.2 % (35.0-45.0); HEMOGLOBIN 9.4 g/dl (12.0-16.0); LYMPHOCYTES # (AUTO) 1.2 X10'3 (1.1-4.8); LYMPHOCYTES % (AUTO) 16.4 % (21-51); MEAN CORPUSCULAR HGB CONC 32.1 g/dL (33.0-36.5); MEAN CORPUSCULAR VOLUME 87.1 FL (78-98); MEAN PLATELET VOLUME 7.9 FL (7.4-10.4); MONOCYTES # (AUTO) 0.8 X10'3 (0-0.9); MONOCYTES % (AUTO) 10.8 % (2-12); NEUTROPHILS # (AUTO) 5.4 X10'3 (1.8-7.7); NEUTROPHILS % (AUTO) 71.8 % (42-75); PLATELET COUNT 383 X10'3 (140-440); RED BLOOD COUNT 3.36 X10'6 (4.20-5.60); RED CELL DISTRIBUTION WIDTH 17.4 % (11.5-14.5); WHITE BLOOD COUNT 7.5 X10'3 (4.5-11.0)
[2021-10-15 09:39] LABS: ALANINE AMINOTRANSFERASE 36 U/L (12-78); ALBUMIN 2.2 G/DL (3.4-5.0); ALBUMIN/GLOBULIN RATIO 0.6 (1.1-1.5); ALKALINE PHOSPHATASE 120 IU/L (46-116); ANION GAP 10 (8-16); ASPARTATE AMINO TRANSFERASE 33 U/L (10-37); BILIRUBIN,TOTAL 0.3 MG/DL (0.1-1.0); BLOOD UREA NITROGEN 13 MG/DL (7-18); BUN/CREATININE RATIO 15.1 (6.6-38.0); CALCIUM 8.3 MG/DL (8.5-10.1); CHLORIDE 103 MMOL/L (99-107); CREATININE 0.86 MG/DL (0.40-0.90); GLUCOSE 232 MG/DL (70-104); POTASSIUM 4.2 MMOL/L (3.5-5.1); SODIUM 137 MMOL/L (135-145); TOTAL CARBON DIOXIDE 24.5 MMOL/L (24-32); TOTAL PROTEIN 6.1 G/DL (6.4-8.2); eGFR 63 ML/MIN
[2021-10-15 10:00] VITALS: BP 175/40
[2021-10-15 15:20] VITALS: BP 155/47
--- NOTE | 2021-10-15 15:35 | NUR ---
Report called and given to Nurse Mejia at [facility].
--- NOTE | 2021-10-15 16:03 | NUR ---
Patient transferred to [facility] via [facility] with all belongings.
[2021-10-15] MEDS ORDERED: pramipexole 0.25mg tablet PO SCH (21:00)
== END 2021-10-15 15:55 | DRG 193 ==
LOC: ER 09:20 → ED HOLD 12:21 → ORTHO 4S 17:50
PROVIDERS: ADMIT Family Medicine; ATTEND Family Medicine
PROC: B32T1ZZ Computerized Tomography (CT Scan) of Left Pulmonary Artery using Low Osmolar Contrast (ICD-10-PCS; principal; 2021-10-08)
PROC: B3201ZZ Computerized Tomography (CT Scan) of Thoracic Aorta using Low Osmolar Contrast (ICD-10-PCS; 2021-10-08)
PROC: B32S1ZZ Computerized Tomography (CT Scan) of Right Pulmonary Artery using Low Osmolar Contrast (ICD-10-PCS; 2021-10-08)
PROC: 0DH63UZ Insertion of Feeding Device into Stomach, Percutaneous Approach (ICD-10-PCS; 2021-10-12)
DX: J18.9 Pneumonia, unspecified organism (principal); J96.01 Acute respiratory failure with hypoxia; R65.11 Systemic inflammatory response syndrome (SIRS) of non-infectious origin with acute organ dysfunction; J44.0 Chronic obstructive pulmonary disease with (acute) lower respiratory infection; E87.1 Hypo-osmolality and hyponatremia; Z20.822 Contact with and (suspected) exposure to COVID-19; E03.9 Hypothyroidism, unspecified; R13.10 Dysphagia, unspecified; E11.9 Type 2 diabetes mellitus without complications; E78.5 Hyperlipidemia, unspecified; E87.5 Hyperkalemia; D50.9 Iron deficiency anemia, unspecified; G89.29 Other chronic pain; F41.1 Generalized anxiety disorder; M54.9 Dorsalgia, unspecified; F32.A Depression, unspecified; I10 Essential (primary) hypertension; J30.9 Allergic rhinitis, unspecified; R62.7 Adult failure to thrive; Z79.4 Long term (current) use of insulin; Z86.718 Personal history of other venous thrombosis and embolism; Z85.819 Personal history of malignant neoplasm of unspecified site of lip, oral cavity, and pharynx; Z88.0 Allergy status to penicillin; Z90.710 Acquired absence of both cervix and uterus; Z88.2 Allergy status to sulfonamides; Z68.29 Body mass index [BMI] 29.0-29.9, adult; Z87.440 Personal history of urinary (tract) infections
CPT/HCPCS: 36415; 36600; 43246; 71045; 71275; 80053; 81001; 82607; 82728; 82803; 82948; 83036; 83540; 83550; 83605; 83735; 83880; 84132; 84134; 84145; 84443; 84484; 85007; 85018; 85025; 87040; 87081; 87635; 92508; 92616; 93005; 94640; 94667; 94668; 94760; 94799; 96365; 96375; 97110; 97116; 97161; 97530; 99152; 99285; A4620; B4087; G0378; J1200; J1644; J1815; J1956; J2250; J2270; J2405; J3010; J7030; Q9967

== ENCOUNTER 2022-10-14 09:00 | Day surgery (SDC) | payer MEDICARE, MEDICAID ==
[2022-10-14] VITALS (10 sets, daily range): BP systolic 110–150; BP diastolic 46–92
[~2022-10-14] VITALS: Ht 157.5 cm; Wt 58.1 kg
[~2022-10-14 09:00] MED LIST: CETI5TAB27 PO; DULO30CA52 PO; INSU100I31 SQ; INSU100V5 IJ; METO5TAB85 PO
[2022-10-14] MEDS ORDERED: normal saline 1000ml 1,000 ML IV PRN (09:25)
--- NOTE | 2022-10-14 09:30 | NUR ---
Pt extremely confused. She knows her name and but doesn't know where she is or what is happening. She has asked about 15 times why she is here and doesn't remember. Grandson is able to consent for her.
[2022-10-14] MEDS ORDERED: ONDA8TAB13 PO (10:02)
[2022-10-14] MEDS ORDERED: INSU100V13 SQ (10:02)
[2022-10-14] MEDS ORDERED: ESTR0.5T28 PO (10:02)
[2022-10-14] MEDS ORDERED: SEMA0.25 SQ (10:02)
[2022-10-14] MEDS ORDERED: FLUT16SP26 BOTHNARES (10:02)
[2022-10-14] MEDS ORDERED: LEVO125T8 PO (10:02)
[2022-10-14] MEDS ORDERED: PRAM0.258 PO (10:02)
[2022-10-14] MEDS ORDERED: AZEL6DRO5 EACHEYE (10:02)
[2022-10-14] MEDS ORDERED: PROC10TA10 PO (10:02)
[2022-10-14] MEDS ORDERED: AMLO5TAB16 PO (10:02)
[2022-10-14] MEDS ORDERED: LOSA100T57 PO (10:02)
[2022-10-14] MEDS ORDERED: VALA500T41 PO (10:02)
[2022-10-14] MEDS ORDERED: LANTUS (10:02)
[2022-10-14] MEDS ORDERED: HYDR-3972 PO (10:02)
[2022-10-14] MEDS ORDERED: LOVA40TA2 PO (10:02)
[2022-10-14] MEDS ORDERED: ATOR10TA70 PO (10:02)
[2022-10-14 10:20] LABS: BASOPHILS % (AUTO) 0.1 % (0-1); EOSINOPHILS # (AUTO) 0.1 X10'3 (0-0.9); EOSINOPHILS % (AUTO) 0.5 % (0-6); HEMATOCRIT 30.3 % (35.0-45.0); HEMOGLOBIN 9.7 g/dl (12.0-16.0); LYMPHOCYTES # (AUTO) 0.6 X10'3 (1.1-4.8); LYMPHOCYTES % (AUTO) 5.3 % (21-51); MEAN CORPUSCULAR HEMOGLOBIN 23.8 PG (27.0-31.0); MEAN CORPUSCULAR VOLUME 74.4 FL (78-98); MEAN PLATELET VOLUME 6.4 FL (7.4-10.4); MONOCYTES # (AUTO) 0.8 X10'3 (0-0.9); MONOCYTES % (AUTO) 8.1 % (2-12); NEUTROPHILS # (AUTO) 9.1 X10'3 (1.8-7.7); PLATELET COUNT 577 X10'3 (140-440); RED BLOOD COUNT 4.07 X10'6 (4.20-5.60); RED CELL DISTRIBUTION WIDTH 15.6 % (11.5-14.5); WHITE BLOOD COUNT 10.5 X10'3 (4.5-11.0)
[2022-10-14] MEDS ORDERED: fentaNYL/PF 50MCG/1 ML 2ML syringe ONE (10:42)
[2022-10-14] MEDS ORDERED: midazolam 1 mg/ML 2ml injection ONE (10:43)
== END 2022-10-14 13:35 | disposition home or self-care (01) ==
LOC: SSTAY O 09:00
PROVIDERS: ATTEND Radiology Vascular & Interventional Radiology
DX: R91.1 Solitary pulmonary nodule (principal); J85.2 Abscess of lung without pneumonia; C06.0 Malignant neoplasm of cheek mucosa; C05.0 Malignant neoplasm of hard palate; I10 Essential (primary) hypertension; M19.90 Unspecified osteoarthritis, unspecified site; E11.9 Type 2 diabetes mellitus without complications; E03.9 Hypothyroidism, unspecified; E78.00 Pure hypercholesterolemia, unspecified; Z88.0 Allergy status to penicillin; Z88.2 Allergy status to sulfonamides; Z79.899 Other long term (current) drug therapy; Z79.4 Long term (current) use of insulin; Z79.01 Long term (current) use of anticoagulants
CPT/HCPCS: 10009; 36415; 71045; 82948; 85025; 85610; J2250; J3010; J7030; 32408; 77012; 88173; 88305; 88312; A4615